=== PATIENT | female | born 1985 | race Caucasian/White ===

== ENCOUNTER 2016-12-12 14:11 | Emergency (ER) | payer OTHER ==
[2016-12-12 15:21] LABS: PLATELET COUNT 229 x10^3mcL (130-400); RED CELL DISTRIBUTION WIDTH 12.4 % (11.5-14.5)
[2016-12-12 15:47] LABS: CARBON DIOXIDE 25.3 mmol/L (21-32); CHLORIDE SERUM 102 mmol/L (98-107); CREATININE SERUM 0.7 mg/dL (0.6-1.0); GFR1 > 60 mL/min; GLUCOSE SERUM 92 mg/dL (74-106); POTASSIUM SERUM 3.9 mmol/L (3.5-5.1); SODIUM SERUM 138 mmol/L (136-145)
[2016-12-12 15:51] LABS: ALKALINE PHOSPHATASE 102 U/L (46-116); ALT/SGPT 33 U/L (14-59); AMYLASE 71 U/L (25-115); AST/SGOT 22 U/L (15-37); LIPASE 107 IU/L (73-393); TOTAL PROTEIN, SERUM 8.1 g/dL (6.4-8.2)
[2016-12-12 16:05] LABS: BAND NEUTROPHIL 2 % (0-10); BASOPHIL 1 % (0-2); MONOCYTE 2 % (0-7); SEGMENTED NEUTROPHILS 82 % (37-75); rbc morphology (normal/abnorm) NORMAL (NORMAL)
[2016-12-12 18:44] VITALS: BP 100/56
== END 2016-12-12 18:44 | disposition home or self-care (01) ==
LOC: ED 14:11
PROVIDERS: Emergency Medicine
DX: R10.13 Epigastric pain (principal); R10.33 Periumbilical pain; R11.10 Vomiting, unspecified; R19.7 Diarrhea, unspecified
CPT/HCPCS: 83880; 87046; 87046-59; J1885; J2405; J7030

== ENCOUNTER 2017-11-19 04:02 | Emergency (ER) | payer OTHER ==
[2017-11-19 05:50] VITALS: BP 124/59
== END 2017-11-19 05:50 | disposition home or self-care (01) ==
LOC: ED 04:02
DX: B37.3 Candidiasis of vulva and vagina (principal); N39.0 Urinary tract infection, site not specified

== ENCOUNTER 2017-12-20 09:54 | Emergency (ER) | payer MEDICAID ==
[~2017-12-20] VITALS: Ht 157.5 cm; Wt 70.3 kg
[2017-12-20 09:58] VITALS: Ht 157.5 cm; Wt 70.3 kg
[2017-12-20 10:52] LABS: microscopic required? YES; urine erythrocyte NEGATIVE (NEGATIVE)
[2017-12-20 11:31] VITALS: BP 106/80
== END 2017-12-20 11:31 | disposition home or self-care (01) ==
LOC: ED 09:54
PROVIDERS: Emergency Medicine
DX: B37.3 Candidiasis of vulva and vagina (principal); R10.9 Unspecified abdominal pain
CPT/HCPCS: 87491; 87591; J0696

== ENCOUNTER 2018-10-08 12:08 | Emergency (ER) | payer MEDICAID ==
[~2018-10-08] VITALS: Ht 162.6 cm; Wt 66.2 kg
[2018-10-08 12:13] VITALS: Ht 162.6 cm; Wt 66.2 kg
[2018-10-08 13:38] LABS: BASOPHIL % 0.3 % (0-2); PLATELET COUNT 230 x10^3mcL (130-400); RED CELL DISTRIBUTION WIDTH 12.9 % (11.5-14.5)
[2018-10-08 13:40] LABS: CALCIUM 8.8 mg/dL (8.5-10.1); CHLORIDE SERUM 104 mmol/L (98-107); CREATININE SERUM 0.8 mg/dL (0.6-1.0); GFR1 > 60 mL/min; GLUCOSE SERUM 102 mg/dL (74-106); POTASSIUM SERUM 3.8 mmol/L (3.5-5.1); SODIUM SERUM 139 mmol/L (136-145)
[2018-10-08 13:44] LABS: ALBUMIN 3.7 g/dL (3.4-5.0); ALKALINE PHOSPHATASE 91 U/L (46-116); ALT/SGPT 31 U/L (14-59); AST/SGOT 21 U/L (15-37); BILIRUBIN TOTAL 0.65 mg/dL (0.20-1.00); LIPASE 105 IU/L (73-393); TOTAL PROTEIN, SERUM 7.5 g/dL (6.4-8.2)
[2018-10-08 14:25] VITALS: BP 107/61
== END 2018-10-08 14:25 | disposition home or self-care (01) ==
LOC: ED 12:08
PROVIDERS: Emergency Medicine
DX: J20.8 Acute bronchitis due to other specified organisms (principal); K21.9 Gastro-esophageal reflux disease without esophagitis
CPT/HCPCS: 36415; Q0092; Q0162

== ENCOUNTER 2019-09-02 11:27 | Emergency (ER) | payer MEDICAID ==
[~2019-09-02] VITALS: Ht 165.1 cm; Wt 64.0 kg
[2019-09-02 11:35] VITALS: BP 102/59; Ht 165.1 cm; Wt 64.0 kg
== END 2019-09-02 14:06 | disposition home or self-care (01) ==
LOC: ED 11:27
DX: J11.1 Influenza due to unidentified influenza virus with other respiratory manifestations (principal); M25.532 Pain in left wrist; M25.531 Pain in right wrist